=== PATIENT | female | born 1990 | race Caucasian/White ===

== ENCOUNTER 2017-03-30 04:24 | Emergency (ER) | payer MEDICAID ==
[~2017-03-30] VITALS: Ht 165.1 cm; Wt 54.4 kg
[2017-03-30 04:42] VITALS: BP 115/60
[2017-03-30] MEDS ORDERED: ACETAMINOPHEN ES 500 MG TABLET ONE (05:29)
[2017-03-30] MEDS ORDERED: ACETAMINOPHEN 325 MG TABLET PO ONE (06:00)
== END 2017-03-30 05:39 | disposition home or self-care (01) ==
LOC: ER 04:27
DX: J06.9 Acute upper respiratory infection, unspecified (principal)
CPT/HCPCS: A4649; Z7610